=== PATIENT | female | born 1985 | race Caucasian/White ===

== ENCOUNTER 2018-02-22 18:57 | Emergency (ER) | payer MEDICAID ==
--- NOTE | 2018-02-22 19:28 | Emergency Department Record ---
History of Present Illness - General Chief complaint: ENT Stated complaint: SORE THROAT Time Seen by Provider: 02/22/18 19:27 Source: Patient Mode of Arrival: Ambulatory Limitations: No limitations - History of Present Illness Initial comments: 32 yo female presents to ED for evaluation of sore throat and congestion symptoms for the past 1-2 days. Patient denies fevers, chills, or productive cough symptoms. Patient denies health problems at her baseline, does report that her daughter has similar symptoms at home as well. MD complaint: Sore throat Onset/Timin -: Days(s) Location: Throat Severity scale (1-10): 4 Quality: Aching Consistency: Constant Improves with: None Worsens with: None Associated Symptoms: Sore throat - Related Data Home Medications Medication Instructions Recorded Confirmed Last Taken Dextroamphetamine/Amphetamine 30 mg PO QAM 02/22/18 02/22/18 Unknown [Adderall Xr] Allergies Allergy/AdvReac Type Severity Reaction Status Date / Time Penicillins Allergy PT UNSURE Verified 11/29/13 10:10 OF REACTION prochlorperazine edisylate Allergy SKIN Verified 11/29/13 10:10 [From Compazine] IRRITATION prochlorperazine maleate Allergy SKIN Verified 11/29/13 10:10 [From Compazine] IRRITATION terbutaline Allergy RASH Verified 11/29/13 10:10 Travel Screening - Travel/Exposure Within Last 30 Days Have you traveled within the last 30 days?: No Review of Systems Constitutional: Denies: Chills, Fever, Malaise, Night sweats Eyes: Denies: Eye discharge, Eye pain ENT: Reports: Congestion, Throat pain. Denies: Ear pain, Epistaxis Respiratory: Denies: Cough, Dyspnea Cardiovascular: Denies: Chest pain, Dyspnea on exertion Endocrine: Denies: Fatigue, Heat or cold intolerance Gastrointestinal: Denies: Abdominal pain, Nausea, Vomiting Genitourinary: Denies: Incontinence, Retention Musculoskeletal: Denies: Arthralgia, Back pain, Gout, Joint swelling Skin: Denies: Bruising, Change in color Neurological: Denies: Abnormal gait, Confusion, Headache, Tingling, Tremors Psychiatric: Denies: Anxiety Hematological/Lymphatic: Denies: Anemia, Blood Clots Past Medical History - SOCIAL HISTORY Smoking Status: Never smoker - RESPIRATORY Hx Respiratory Disorders: No - CARDIOVASCULAR Hx Cardio Disorders: No - NEURO Hx Neuro Disorders: No - GI Hx GI Disorders: No - Hx Genitourinary Disorders: Yes Hx Kidney Stones: Yes - ENDOCRINE Hx Endocrine Disorders: No - MUSCULOSKELETAL Hx Musculoskeletal Disorders: Yes Hx Fibromyalgia: Yes - HEMATOLOGY/ONCOLOGY Hx Hematology/Oncology Disorders: Yes Comment:: Lupus Family Medical History Any Significant Family History?: No Physical Exam - General General Appearance: Alert, Oriented x3, Cooperative, Mild distress Limitations: No limitations - Head Head exam: Atraumatic, Normocephalic, Normal inspection Head exam detail: negative: Abrasion, Contusion, Martinez's sign, General tenderness, Hematoma, Laceration - Eye Eye exam: Normal appearance. negative: Conjunctival injection, Periorbital swelling, Periorbital tenderness, Scleral icterus - ENT Ear exam: negative: Auricular hematoma, Auricular trauma Nasal Exam: negative: Active bleeding, Discharge, Dried blood, Sinus tenderness Mouth exam: negative: Drooling, Laceration, Tongue elevation Throat exam: negative: Tonsillar erythema, Tonsillomegaly, R peritonsillar mass , L peritonsillar mass - Neck Neck exam: Normal inspection. negative: Meningismus, Tenderness - Respiratory Respiratory exam: Normal lung sounds bilaterally. negative: Respiratory distress, Rhonchi, Stridor, Wheezes - Cardiovascular Cardiovascular Exam: Regular rate, Normal rhythm, Normal heart sounds - Rectal Rectal exam: Deferred - exam: Deferred - Extremities Extremities exam: Normal inspection. negative: Pedal edema, Tenderness - Back Back exam: Denies: CVA tenderness (R), CVA tenderness (L) - Neurological Neurological exam: Alert, Normal gait, Oriented X3 - Psychiatric Psychiatric exam: Normal affect, Normal mood - Skin Skin exam: Normal color. negative: Abrasion Type of lesion: negative: abrasion Course Vital Signs 02/22/18 19:17 Temperature 97.5 F L Pulse Rate [ 89 Pulse Ox Probe] Respiratory 20 Rate Blood Pressure 115/73 [Left Arm] Pulse Ox 95 - Reevaluation(s) Reevaluation #1: 02/22/18 19:34 Return to ED if your symptoms worsen or if you have any concerns. Continue symptomatic treatment with Claritan/Flonase over the counter as directed. Follow-up with your family doctor in 3-5 days as directed. Medical Decision Making - Lab Data Lab Results 12/30/18 Range/Units 19:25 Group A Strep Screen Negative (NEGATIVE) Disposition Disposition: Discharge Clinical Impression: Pharyngitis Qualifiers: Pharyngitis/tonsillitis etiology: unspecified etiology Qualified Code(s): J02.9 - Acute pharyngitis, unspecified Disposition: Home, Self-Care Condition: (2) Stable Instructions: Pharyngitis (ED) Additional Instructions: Return to ED if your symptoms worsen or if you have any concerns. Continue symptomatic treatment with Claritan/Flonase over the counter as directed. Follow-up with your family doctor in 3-5 days as directed. Forms: Patient Portal Access Time of Disposition: 19:28 Quality - Quality Measures Quality Measures: N/A - Blood Pressure Screening Does Patient Have Any of the Following: No Blood Pressure Classification: Normal BP Reading Systolic Measurement: 115 Diastolic Measurement: 73 Screening for High Blood Pressure: < Normal BP, F/U Not Required > [[id number]]
== END 2018-02-22 19:37 | disposition home or self-care (01) ==
LOC: ER 18:57
DX: J02.9 Acute pharyngitis, unspecified (principal)
CPT/HCPCS: 87880; 99282